=== PATIENT | male | born 1945 | race Caucasian/White ===

== ENCOUNTER 2016-11-25 19:35 | Emergency (ER) | payer MEDICARE ==
[~2016-11-25 19:35] MED LIST: APRES25 PO; ASAB PO; BENTYL20 PO; CLARIT10 PO; FENOFIBRATE; FISH-EPA1000 MG PO; GLUCOPHAGE1000 MG PO; GLUCPH PO; HYZAAR1 TAB PO; IMDUR30 PO; L40 PO; LIBRAX PO; LIPITOR40 PO; MELATONIN5 M1 PO; MICARDIS HC1 PO; MOVE-FREE PO; NIACIN 500 PO; PRILO PO; SIN25 PO; TRICOR145 PO; [UNRECOGNIZED DRUG - CODE] PO; [UNRECOGNIZED DRUG - REMARK] PO
[2017-01-19] MEDS ORDERED: GLUCOPHAGE1000 MG PO (13:16)
[2017-01-19] MEDS ORDERED: PERCOCET 7.5/321 TAB PO (13:16)
[2017-01-19] MEDS ORDERED: DITROXL5 PO (13:17)
[2017-01-19] MEDS ORDERED: HYZAAR1 TAB PO (13:17)
[2017-01-19] MEDS ORDERED: GLUCPH PO (13:17)
[2017-01-19] MEDS ORDERED: MYTAB GAS80 MG PO (13:18)
[2017-01-19] MEDS ORDERED: NITROSTAT0.4 MG SL (13:18)
[2017-01-19] MEDS ORDERED: ASAB PO (13:18)
[2017-01-19] MEDS ORDERED: REQUIP2 PO (13:18)
[2017-01-19] MEDS ORDERED: PRILO PO (13:19)
[2017-01-19] MEDS ORDERED: MOMUD PO (13:19)
[2017-01-19] MEDS ORDERED: MINERAL OIL PO (13:20)
[2017-01-19] MEDS ORDERED: TRICOR145 PO (13:20)
[2017-01-19] MEDS ORDERED: TRINTELLIX5 MG PO (13:20)
[2017-01-19] MEDS ORDERED: SIN25 PO (13:20)
[2017-01-19] MEDS ORDERED: APRES25 PO (13:24)
[2017-01-19] MEDS ORDERED: BENTYL10 PO (13:24)
[2017-01-22] MEDS ORDERED: MIRALAX POWDER1 PKT PO (17:09)
[2017-01-22] MEDS ORDERED: SENTAB PO (17:10)
[2017-01-22] MEDS ORDERED: FLOMAX4 PO (17:10)
[2017-01-22] MEDS ORDERED: DURICEF PO (17:11)
[2017-02-25] MEDS ORDERED: BACDS PO (19:34)
[2017-02-25] MEDS ORDERED: CLINDA150 PO (19:35)
[2017-02-25] MEDS ORDERED: FLOMAX4 PO (19:35)
[2017-02-25] MEDS ORDERED: ULTRAM50 PO (19:35)
[2017-02-25] MEDS ORDERED: SIN25 PO (19:36)
[2017-02-25] MEDS ORDERED: REQUIP3 PO (19:36)
[2017-02-25] MEDS ORDERED: CAT1 PO (19:36)
[2017-02-25] MEDS ORDERED: GLUCOPHAGE1000 MG PO (19:37)
[2017-02-25] MEDS ORDERED: APRES25 PO (19:37)
[2017-02-25] MEDS ORDERED: HYZAAR 100/25 T1 TAB PO (19:37)
[2017-02-25] MEDS ORDERED: GLUCPH PO (19:37)
[2017-02-25] MEDS ORDERED: TRINTELLIX5 MG PO (19:38)
[2017-02-25] MEDS ORDERED: TRICOR145 PO (19:40)
[2017-02-25] MEDS ORDERED: ASAB PO (19:40)
[2017-02-25] MEDS ORDERED: NITROSTAT0.4 MG SL (19:40)
[2017-02-25] MEDS ORDERED: PRILOSEC OTC20 MG PO (19:41)
[2017-02-25] MEDS ORDERED: MIRALAX POWDER1 PKT PO (19:41)
[2017-02-25] MEDS ORDERED: MYTAB GAS80 MG PO (19:43)
[2017-02-25] MEDS ORDERED: [UNRECOGNIZED DRUG - REMARK] PO (19:43)
[2017-02-28] MEDS ORDERED: NORV10 PO (12:29)
[2017-02-28] MEDS ORDERED: LEVAQUIN750 MG PO (12:30)
== END 2016-11-25 21:40 | disposition home or self-care (01) ==
LOC: ER 19:35
DX: M25.561 Pain in right knee (principal); E11.9 Type 2 diabetes mellitus without complications; Z88.0 Allergy status to penicillin; Z88.1 Allergy status to other antibiotic agents; Z88.8 Allergy status to other drugs, medicaments and biological substances; Z79.82 Long term (current) use of aspirin; Z79.84 Long term (current) use of oral hypoglycemic drugs; Z79.899 Other long term (current) drug therapy; Z95.1 Presence of aortocoronary bypass graft
CPT/HCPCS: 93971; 96372; 99284